=== PATIENT | male | born 1980 | race African-American/Black ===

== ENCOUNTER 2017-03-10 21:32 | Emergency (ER) | payer BC ==
[2017-03-10 21:41] VITALS: BP 131/77
--- NOTE | 2017-03-10 21:44 | UC ---
Throat Pain/Nasal Chriss HPI - HPI Summary HPI Summary: 36 year old male presents with right tonsilar abscess. - History of Current Complaint Chief Complaint: UCRespiratory Stated Complaint: SORE THROAT Time Seen by Provider: 03/10/17 21:44 Hx Obtained From: Patient Onset/Duration: Sudden Onset Severity: Moderate Pain Scale Used: 0-10 Numeric - 5 Cough: Nonproductive Associated Signs & Symptoms: Positive: Negative - Epiglottits Risk Factors Epiglottis Risk Factors: Negative - Allergies/Home Medications Allergies/Adverse Reactions: Allergies Allergy/AdvReac Type Severity Reaction Status Date / Time No Known Allergies Allergy Verified 03/10/17 21:41 Home Medications: Home Medications Sulfamethox/Trimethoprim DS* [Bactrim DS 800/160 TAB*] 1 tab PO BID 03/10/17 [ History Confirmed 03/10/17] PMH/Surg Hx/FS Hx/Imm Hx Previously Healthy: Yes - Surgical History Surgical History: None - Social History Alcohol Use: Occasionally Substance Use Type: None Smoking Status (MU): Former Smoker Review of Systems Constitutional: Negative Skin: Negative Eyes: Negative, Diplopia ENT: Sore Throat Respiratory: Negative Cardiovascular: Negative Gastrointestinal: Negative Genitourinary: Negative Motor: Negative Neurovascular: Negative Musculoskeletal: Negative Neurological: Negative Psychological: Negative All Other Systems Reviewed And Are Negative: Yes Physical Exam Triage Information Reviewed: Yes Appearance: Well-Appearing Vital Signs: Initial Vital Signs Temp 36.8 C 03/10/17 21:37 Pulse 86 03/10/17 21:37 Resp 18 03/10/17 21:37 BP 131/77 03/10/17 21:37 Pulse Ox 100 03/10/17 21:37 Vital Signs Reviewed: Yes Eye Exam: Normal ENT: Positive: Pharyngeal erythema, Tonsillar swelling, Other: - right tonsillar abscess Dental Exam: Normal Neck exam: Normal Neck: Positive: 1 Respiratory Exam: Normal Cardiovascular Exam: Normal Abdominal Exam: Normal Musculoskeletal Exam: Normal Neurological Exam: Normal Psychological Exam: Normal Skin Exam: Normal Throat Pain/Nasal Course/Dx - Differential Dx/Diagnosis Provider Diagnoses: right tonsilar abscess Discharge - Discharge Plan Condition: Stable Disposition: OTHER Discharge Disposition Comment: patient suggested to go to the er. Patient Education Materials: Pharyngitis (ED) Referrals: No Primary Care Phys,NOPCP [Primary Care Provider] - Additional Instructions: patient suggested to go to ER for right tonsilar abscess.
== END 2017-03-10 22:32 ==
LOC: UCEAST 21:32
DX: J36 Peritonsillar abscess (principal)
CPT/HCPCS: 87651; 99211; G0463